=== PATIENT | female | born 1975 | race Caucasian/White ===

== ENCOUNTER 2017-02-17 05:31 | Day surgery (SDC) | payer BC, OTHER ==
--- NOTE | 2017-02-16 21:50 | PDHPUP ---
History & Physical Update H&P update statement: This history and physical update is based on an assessment of the patient which was completed after admission or registration (within 24 hours), but prior to the surgery/procedure. 1. Left Hip Pain s/p left-sided hip arthroscopy, Oct 2012 2. 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 ~~~Left-sided iliopsoas tendinopathy 4. ~~~Left-sided glut med and GT pain 5. ~~~Right-sided borderline anterior dysplasia and resultant labral tear HISTORY OF PRESENT ILLNESS: Bhumiis a 41 y.o.~~active female~who I have had the pleasure to consult on today.~I have enjoyed meeting her. ~She is ; she and her three children live in [place] and her is still located in [place]. 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 ~Cande has been very active lately moving from an apartment to a house; she used to enjoy doing the [employer] machine and other fitness activities. Cande's left~hip pain started several years ago, with~some previous complaints~ and with some~recalled trauma or injury. She states that while at work, she sustained a hip injury after jumping from a high chair. ~Her torso pivoted but her foot remained stationary, resulting in acute pain in her left hip. She subsequently took pain medication and went to see an Orthopedic doctor ([facility], Dr Tim Escudero) ~who diagnosed her with a labrum tear and GILLES. She subsequently underwent arthroscopic surgery on October 2012. ~~Post-operatively , she was non-weight bearing, though was not able to be 100% compliant due to her active lifestyle with her family. Soon thereafter she was diagnosed with bursitis of the hip and her anterior hip pain also became progressively worse. The bursitis was treated with serial injections (three), beginning in January 2013 , which offered some relief but not to a sufficient degree. ~At this point, her hip pain is as bad as it was prior to her hip surgery. Presentation is of~anterior and posterior left~hip pain. ~The hip does~wake her~ at night and does~click and catch on her. Sitting can be uncomfortable for her. She states that lying on her back or on her left side is the worst position with regard to aggravating her symptoms. ~Bhumidoes not~report suffering from lower back pain episodes. ~ Bhumiunderstands that she~has a hip and pelvis problem which should be researched and wishes to get a better understanding of her~hip status, followed by an establishment of a treatment strategy, hoping she~would be able to get back to her~well being active life. History: Past medical history: High Blood Pressure, (treated with medication) Hypothyroid, (treated with medication) Temporomandibular osteoarthritis Relevant familial history: None which is relevant Past surgical history: Temporomandibular surgery (10 times). The first one was 1998 Umbilical hernia (2006) Tendon and ganglion on right hand surgery. ACL left, 2009 Left hip arthroscopy, October 2012 I have reviewed, verified and agree with the past medical, surgical, family and social history. Current Medications:~has a current medication list which includes the following prescription(s): alprazolam, calcium carbonate, and fluoxetine. ALLERGIES:~Princehas no known allergies. Objective: Physical Examination: Bhumiis 5 ~feet 2~inches tall and weighs 105 Lbs. Currently, she~walks with a normal~gait. She~has~no leg length discrepancy and present with no~signs of joint laxity. ~ Trendelenburg sign is negative and Properiception is reduced, left~side(s) Lower spine examination is negative~for sciatic or femoral nerve irritation with negative~SLR but positive for femoral stretch tests~on the left side with numbness, tingling.~ Range of motion of the spine is normal~for flexion, extension, and rotations, with no~associated pain. SIJs examination is produces pain on left side~with normal~CLAIRE in relation and local tenderness. Strength~and pulses are normal - bilaterally Numbness secondary to ACL left anterior medial leg and to the ankle Reduced sensation on fem cut lateral left thigh Ankles and knees exams are normal~and no~mal-alignment is evident~except for Lachmann's left knee (+) Hip ROM (degrees): ER At 90~hip FL IR At 90~hip FL IR Neutral hip ER Neutral hip AB AD FL EX R 45 20 50 42 50 20 105 20 L 50 15 40 48 55 15 110p 20 Specific hip and pelvis tests: Quadrant CLAIRE Roll Add. Longus R ++ ++ Negative Negative L +++ +++ Negative Negative Glut. Med ITB Pos. Imp R Negative Negative Negative L +++ Negative ++ Squeeze test measured normal Bony Symphysis pubis is pain free to touch while concentric activity of the rectus abdominis, does not~produce pain at its insertion. Ilio Psos specific tests are positive for the left hip~and remarkable for left- sided painful snap~and nonpainful cycling on the right side and nonpainful snap on the right Greater trochanteric burse is painful on the left hip Piriformis tests: FAIR is negative, with no local signs of neuritis related to sciatic nerve. Quad circumference is asymmetric with low muscle atrophy (10%) on the left~side Hamstrings tests are negative for ~functional contraction bilaterally, negative for ~tendinopathy bilaterally, and TTP on left hamstrings origin (though not her daily pain) Per Cande: LEFT SIDE Glut med/min 30% Hip (anterior and posterior joint together) 70% Imaging: Radiology studies which I~have personally reviewed, analyzed and measured are below: XR: AP of the hip and pelvis: Performed in a good~technique Specific measurements show: NSA~ Cam LCE Lat. Pincer C.Over~sign Act. Depth A.I~% Head~Coverage % Sourcil ~Angle ATDmm R N - 25 + ~~12-1 P N 80 8 N L N - 21 - - P N 70 10 N [place]~Lines are preserved. Minimal Pathological signs are seen in the Symphysis Pubis. Minimal Pathological signs are seen at the Ischial~tuberosity. ~~~~~~~~~~~~~ Pos. wall sign Sup. Lat. OA Joint Space-WBZ Joint Space-Medial SALT R Negative Negative 5 mm 3.86 mm 10.8 mm L Negative Negative 5.24 mm 3.06 mm 10.4 mm Sclerosis ~~Dysplasia Cysts ISS R Negative + Negative Negative L Negative ++ Weight bearing cyst socket Negative X TABLE:~Right Hip, indentation divot secondary to anterior CAM Bilateral anteverted socket (bilateral 19 mm distance between anterior and posterior mendoza) Impression and plan: Cande~is a 41 y.o.~active female~suffering from symptomatic left hip pain s/p hip arthroscopy due to femoral head subluxation secondary to hip dysplasia ( anteverted socket and possible anteverted femur), left-sided glut med/GT pain, and left-sided iliopsoas tendinopathy causing significant disability to her~and altering~her~sport and life activities.~~She is also symptomatic on the right hip during physical examination maneuvers, and on imaging exhibits characteristics of borderline dysplasia. ~ In order to differentiate between the various possible sources of pain Cande opted to move forward with an intra articular injection today in clinic. After verbal consent was obtained and she voiced understanding of risks of infection, misplaced injection, fat or skin atrophy or injection into unintended structures , skin was prepped in routine sterile fashion. With sterile technique, after local skin and subcutaneous tissues were injected with 5cc 1% lidocaine, an injection of 10cc of 1% lidocaine was injected into Cande's hip joint without complication. The procedure was well tolerated. She noted improved symptoms with activity immediately after injection. The injection took 90% of the pain away, confirming the hip joint as the major source of her pain. I have explained the diagnosis and its significance to Bhumiand we have discussed the various possible treatment options~and their implications~with her. ~These include proceeding with conservative treatment while continuing to modify her~activities to avoid aggravating the hip further, resuming anti pain medications or intra articular injections (when needed) which can give temporary relief and a revision hip arthroscopy aiming to address the above pathology. We have also discussed the technical aspects of the surgery, mainly with regards to a possible need for labral reconstruction, if kletsel dehe wintun labral tissue is not amendable to repair due to quality and tear size. Prior to surgery we will obtain MRI to assess the extent of soft tissue and chondral injury, specifically evaluating the quality of her cartilage (as she is s/p hip arthroscopy). ~CT with 3D recon will be done in order to pre plan an accurate and optimal volume and location of bony resection. Bhumiis happy with this plan. I have also supplied her~with handouts, outlining the expected surgical treatment and rehab involved. I wish Bhumiall the best, ~~ Ketan Garrison MD
[~2017-02-17 05:31] MED LIST: ACETAMINOPHEN 500 MG TAB PO ONE; PREGABALIN 150 MG CAP PO ONE
[2017-02-17] MEDS ORDERED: PREGABALIN 150 MG CAP PO ONE (06:00)
[2017-02-17] MEDS ORDERED: ceFAZolin 2 GM/DEXTROSE 100 ML IV ONE (06:00)
[2017-02-17] MEDS ORDERED: ACETAMINOPHEN 500 MG TAB PO ONE (06:00)
[2017-02-17] MEDS ORDERED: LR 1,000 ML IV ONE (06:04)
[2017-02-17] MEDS ORDERED: LIDOCAINE 1% 2 ML INJ ID PRN (06:04)
[2017-02-17] MEDS ORDERED: ONDANSETRON 4 MG/2 ML VIAL IVP PRN (06:40)
[2017-02-17] MEDS ORDERED: ONDANSETRON DISINTEGRATING 4 MG TAB PO PRN (06:40)
[2017-02-17] MEDS ORDERED: EPINEPHrine 30 MG/30 ML MDV ONE (06:45)
[2017-02-17] MEDS ORDERED: BUPIVACAINE/EPI 0.25% 30 ML SDV ONE (06:45)
[2017-02-17] MEDS ORDERED: PROPOFOL 200 MG/20 ML VIAL ONE (07:06)
[2017-02-17] MEDS ORDERED: PROPOFOL/EMULSION 500 MG/50 ML BOTTLE IV ONE (07:06)
[2017-02-17] MEDS ORDERED: ROCURONIUM 50 MG/5 ML VIAL ONE ×2 (07:06→07:58)
[2017-02-17] MEDS ORDERED: fentaNYL 100 MCG/2 ML INJ ONE (07:06)
[2017-02-17] MEDS ORDERED: SUGAMMADEX SODIUM 200 MG/2 ML VIAL IVP ONE (07:07)
[2017-02-17] MEDS ORDERED: ONDANSETRON 4 MG/2 ML VIAL ONE (07:07)
[2017-02-17] MEDS ORDERED: METOCLOPRAMIDE 10 MG/2 ML VIAL ONE (07:07)
[2017-02-17] MEDS ORDERED: KETOROLAC 30 MG/1 ML SDV ONE (07:07)
[2017-02-17] MEDS ORDERED: DEXAMETHASONE 4 MG/ML VIAL ONE (07:07)
[2017-02-17] MEDS ORDERED: SCOPOLAMINE HYDROBROMIDE 1.5 MG PATCH TD ONE ×2 (07:12→07:19)
[2017-02-17] MEDS ORDERED: MIDAZOLAM 2 MG/2 ML VIAL ONE (07:12)
[2017-02-17] MEDS ORDERED: MIDAZOLAM 2 MG/2 ML VIAL IVP ONE (07:19)
[2017-02-17] MEDS ORDERED: PHENYLEPHRINE HCL 100 MCG/ML SYR ONE (07:39)
[2017-02-17] MEDS ORDERED: ATROPINE SULFATE 1 MG/ML VIAL ONE (07:55)
[2017-02-17] MEDS ORDERED: NALOXONE HCL 0.4 MG/ML INJ IVP PRN (08:23)
[2017-02-17] MEDS ORDERED: HYDROmorphONE/DILAUDID 1 MG/ML SYR IVP PRN (08:23)
[2017-02-17] MEDS ORDERED: ALBUTEROL 3 ML DEYVIAL IH PRN (08:23)
[2017-02-17] MEDS ORDERED: PROMETHAZINE HCL 25 MG/ML INJ IVP PRN (08:23)
--- NOTE | 2017-02-17 09:23 | POSTANESTH ---
Post Anesthetic Evaluation Cardiovascular Status: Normal, Stable Respiratory Status: Normal, Stable Level of Consciousness/Mental Status: Can Participate in Eval Pain Control: Adequate, Prn Tx Ordered Nausea/Vomiting Control: Adequate, Prn Tx Ordered Complications Possibly Related to Anesthesia: None Noted
--- NOTE | 2017-02-17 09:24 | PDANEPAE ---
ANE History of Present Illness Pt presents for surgery ANE Past Medical History - Cardiovascular History Hx Hypertension: No Hx Arrhythmias: No Hx Chest Pain: No Hx Coronary Artery / Peripheral Vascular Disease: No Hx CHF / Valvular Disease: No Hx Palpitations: No - Pulmonary History Hx COPD: No Hx Asthma/Reactive Airway Disease: No Hx Recent Upper Respiratory Infection: No Hx Oxygen in Use at Home: No - Neurologic History Hx Cerebrovascular Accident: No Hx Seizures: No Hx Dementia: No - Endocrine History Hx Diabetes: No - Renal History Hx Renal Disorders: No - Liver History Hx Hepatic Disorders: No - Neurological & Psychiatric Hx Hx Neurological and Psychiatric Disorders: Yes - Cancer History Hx Cancer: No - Congenital Disorder History Hx Congenital Disorders: No - GI History Hx Gastrointestinal Disorders: Yes - Chronic Pain History Chronic Pain: Yes (left hip) ANE Review of Systems - Exercise capacity METS (RN): 4 METS ANE Patient History - Allergies Allergies/Adverse Reactions: No Known Allergies Allergy (Verified 02/14/17 13:26) - Home Medications Home Medications: Herbals/Supplements -Info Only 02/14/17 [Last Taken 02/14/17] LYRICA 02/14/17 [Last Taken Unknown] LaMICtal 02/14/17 [Last Taken 02/16/17] Linzess 02/14/17 [Last Taken 02/16/17] Prozac 10 MG (*) 02/14/17 [Last Taken 02/16/17] Synthroid 02/14/17 [Last Taken 02/16/17] - NPO status NPO Since - Liquids (Date): 02/17/17 NPO Since - Liquids (Time): 03:00 NPO Since - Solids (Date): 02/16/17 NPO Since - Solids (Time): 20:00 - Smoking Hx Smoking Status: Never smoked - Family Anes Hx Family Hx Anesthesia Complications: none ANE Labs/Vital Signs - Vital Signs Blood Pressure: 94/67 Heart Rate: 62 Respiratory Rate: 16 O2 Sat (%): 93 Height: 154.94 cm Weight: 53.524 kg ANE Physical Exam - Airway Neck exam: decreased ROM Mallampati Score: Class 2 Mouth exam: small mouth opening - Pulmonary Pulmonary: no respiratory distress - Cardiovascular Cardiovascular: regular rate and rhythym - ASA Status ASA Status: II ANE Anesthesia Plan Anesthesia Plan: general endotracheal anesthesia (RBA discussed, patient agrees to proceed)
[2017-02-17] MEDS: fentaNYL 100 MCG/2 ML INJ IVP PRN ×2 (09:34→10:24)
[2017-02-17 09:42] VITALS: TEMP 97.5
[2017-02-17] MEDS: OXYCODONE/APAP 5/325 TAB PO PRN ×2 (10:31→12:44)
[2017-02-17 11:41] VITALS: PULSE 57; RESP 16
[2017-02-17 13:31] VITALS: O2SAT 97
[2017-02-17 13:56] VITALS: BP 91/59
== END 2017-02-17 13:20 | disposition home or self-care (01) ==
LOC: FSGY 05:31
PROVIDERS: ATTEND Orthopaedic Surgery Sports Medicine
PROC: 0SQB4ZZ Repair Left Hip Joint, Percutaneous Endoscopic Approach (ICD-10-PCS; principal; 2017-02-17 07:15)
PROC: 0SBB4ZZ Excision of Left Hip Joint, Percutaneous Endoscopic Approach (ICD-10-PCS; principal; 2017-02-17 07:15)
DX: M24.852 Other specific joint derangements of left hip, not elsewhere classified (principal); Q65.89 Other specified congenital deformities of hip; M25.552 Pain in left hip; M76.12 Psoas tendinitis, left hip; M67.852 Other specified disorders of synovium, left hip
CPT/HCPCS: 29916; 76001; C1769; C1713; J0461; J0690; J1100; J1885; J2250; J2370; J2405; J2704; J2765; J3010

== ENCOUNTER 2017-02-24 05:43 | Inpatient (IN) | payer BC, OTHER ==
--- NOTE | 2017-02-17 07:01 | PDANEPAE ---
ANE History of Present Illness Patient presents for L hip scope ANE Past Medical History - Cardiovascular History Hx Hypertension: No Hx Arrhythmias: No Hx Chest Pain: No Hx Coronary Artery / Peripheral Vascular Disease: No Hx CHF / Valvular Disease: No Hx Palpitations: No - Pulmonary History Hx COPD: No Hx Asthma/Reactive Airway Disease: No Hx Recent Upper Respiratory Infection: No Hx Oxygen in Use at Home: No - Neurologic History Hx Cerebrovascular Accident: No Hx Seizures: No Hx Dementia: No - Endocrine History Hx Diabetes: No - Renal History Hx Renal Disorders: No - Liver History Hx Hepatic Disorders: No - Neurological & Psychiatric Hx Hx Neurological and Psychiatric Disorders: Yes - Cancer History Hx Cancer: No - Congenital Disorder History Hx Congenital Disorders: No - GI History Hx Gastrointestinal Disorders: Yes - Chronic Pain History Chronic Pain: Yes (left hip) ANE Review of Systems - Exercise capacity Exercise capacity: >=4 METS (stomach surgery, jaw surgery) METS (RN): 4 METS ANE Patient History - Allergies Allergies/Adverse Reactions: No Known Allergies Allergy (Verified 02/14/17 13:26) - Home Medications Home Medications: Herbals/Supplements -Info Only 02/14/17 [Last Taken 02/14/17] LYRICA 02/14/17 [Last Taken Unknown] LaMICtal 02/14/17 [Last Taken 02/16/17] Linzess 02/14/17 [Last Taken 02/16/17] Prozac 10 MG (*) 02/14/17 [Last Taken 02/16/17] Synthroid 02/14/17 [Last Taken 02/16/17] - Smoking Hx Smoking Status: Never smoked - Family Anes Hx Family Hx Anesthesia Complications: none ANE Labs/Vital Signs - Vital Signs Height: 154.94 cm Weight: 53.524 kg ANE Physical Exam - Airway Mallampati Score: Class 2 Mouth exam: normal dental/mouth exam - Pulmonary Pulmonary: no respiratory distress - Cardiovascular Cardiovascular: regular rate and rhythym - ASA Status ASA Status: II ANE Anesthesia Plan Anesthesia Plan: general endotracheal anesthesia (rba discussed, patient agrees to proceed)
--- NOTE | 2017-02-20 08:23 | PDGENHP ---
History and Physical - Chief Complaint Left Hip Pain - History of Present Illness 1. Left Hip Pain s/p left-sided hip arthroscopy, Oct 2012 2. 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 ~~~Left-sided iliopsoas tendinopathy 4. ~~~Left-sided glut med and GT pain 5. ~~~Right-sided borderline anterior dysplasia and resultant labral tear HISTORY OF PRESENT ILLNESS: Bhumiis a 41 y.o.~~active female~who I have had the pleasure to consult on today.~I have enjoyed meeting her. ~She is ; she and her three children live in [place] and her is still located in [place]. 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 ~Cande has been very active lately moving from an apartment to a house; she used to enjoy doing the [employer] machine and other fitness activities. Sarahs left~hip pain started several years ago, with~some previous complaints~ and with some~recalled trauma or injury. She states that while at work, she sustained a hip injury after jumping from a high chair. ~Her torso pivoted but her foot remained stationary, resulting in acute pain in her left hip. She subsequently took pain medication and went to see an Orthopedic doctor ([facility], Dr Tim Escudero) ~who diagnosed her with a labrum tear and GILLES. She subsequently underwent arthroscopic surgery on October 2012. ~~Post-operatively , she was non-weight bearing, though was not able to be 100% compliant due to her active lifestyle with her family. Soon thereafter she was diagnosed with bursitis of the hip and her anterior hip pain also became progressively worse. The bursitis was treated with serial injections (three), beginning in January 2013 , which offered some relief but not to a sufficient degree. ~At this point, her hip pain is as bad as it was prior to her hip surgery. Presentation is of~anterior and posterior left~hip pain. ~The hip does~wake her~ at night and does~click and catch on her. Sitting can be uncomfortable for her. She states that lying on her back or on her left side is the worst position with regard to aggravating her symptoms. ~Bhumidoes not~report suffering from lower back pain episodes. ~ Bhumiunderstands that she~has a hip and pelvis problem which should be researched and wishes to get a better understanding of her~hip status, followed by an establishment of a treatment strategy, hoping she~would be able to get back to her~well being active life. History: Past medical history: High Blood Pressure, (treated with medication) Hypothyroid, (treated with medication) Temporomandibular osteoarthritis Relevant familial history: None which is relevant Past surgical history: Temporomandibular surgery (10 times). The first one was 1998 Umbilical hernia (2006) Tendon and ganglion on right hand surgery. ACL left, 2009 Left hip arthroscopy, October 2012 I have reviewed, verified and agree with the past medical, surgical, family and social history. Current Medications:~has a current medication list which includes the following prescription(s): alprazolam, calcium carbonate, and fluoxetine. ALLERGIES:~~has no known allergies. Objective: Physical Examination: Bhumiis 5 ~feet 2~inches tall and weighs 105 Lbs. Currently, she~walks with a normal~gait. She~has~no leg length discrepancy and present with no~signs of joint laxity. ~ Trendelenburg sign is negative and Properiception is reduced, left~side(s) Lower spine examination is negative~for sciatic or femoral nerve irritation with negative~SLR but positive for femoral stretch tests~on the left side with numbness, tingling.~ Range of motion of the spine is normal~for flexion, extension, and rotations, with no~associated pain. SIJs examination is produces pain on left side~with normal~CLAIRE in relation and local tenderness. Strength~and pulses are normal - bilaterally Numbness secondary to ACL left anterior medial leg and to the ankle Reduced sensation on fem cut lateral left thigh Ankles and knees exams are normal~and no~mal-alignment is evident~except for Lachmann's left knee (+) Hip ROM (degrees): ER At 90~hip FL IR At 90~hip FL IR Neutral hip ER Neutral hip AB AD FL EX R 45 20 50 42 50 20 105 20 L 50 15 40 48 55 15 110p 20 Specific hip and pelvis tests: Quadrant CLAIRE Roll Add. Longus R ++ ++ Negative Negative L +++ +++ Negative Negative Glut. Med ITB Pos. Imp R Negative Negative Negative L +++ Negative ++ Squeeze test measured normal Bony Symphysis pubis is pain free to touch while concentric activity of the rectus abdominis, does not~produce pain at its insertion. Ilio Psos specific tests are positive for the left hip~and remarkable for left- sided painful snap~and nonpainful cycling on the right side and nonpainful snap on the right Greater trochanteric burse is painful on the left hip Piriformis tests: FAIR is negative, with no local signs of neuritis related to sciatic nerve. Quad circumference is asymmetric with low muscle atrophy (10%) on the left~side Hamstrings tests are negative for ~functional contraction bilaterally, negative for ~tendinopathy bilaterally, and TTP on left hamstrings origin (though not her daily pain) Per Cande: LEFT SIDE Glut med/min 30% Hip (anterior and posterior joint together) 70% Imaging: Radiology studies which I~have personally reviewed, analyzed and measured are below: XR: AP of the hip and pelvis: Performed in a good~technique Specific measurements show: NSA~ Cam LCE Lat. Pincer C.Over~sign Act. Depth A.I~% Head~Coverage % Sourcil ~Angle ATDmm R N - 25 + ~~12-1 P N 80 8 N L N - 21 - - P N 70 10 N [place]~Lines are preserved. Minimal Pathological signs are seen in the Symphysis Pubis. Minimal Pathological signs are seen at the Ischial~tuberosity. ~~~~~~~~~~~~~ Pos. wall sign Sup. Lat. OA Joint Space-WBZ Joint Space-Medial SALT R Negative Negative 5 mm 3.86 mm 10.8 mm L Negative Negative 5.24 mm 3.06 mm 10.4 mm Sclerosis ~~Dysplasia Cysts ISS R Negative + Negative Negative L Negative ++ Weight bearing cyst socket Negative X TABLE:~Right Hip, indentation divot secondary to anterior CAM Bilateral anteverted socket (bilateral 19 mm distance between anterior and posterior mendoza) Impression and plan: Cande~is a 41 y.o.~active female~suffering from symptomatic left hip pain s/p hip arthroscopy due to femoral head subluxation secondary to hip dysplasia ( anteverted socket and possible anteverted femur), left-sided glut med/GT pain, and left-sided iliopsoas tendinopathy causing significant disability to her~and altering~her~sport and life activities.~~She is also symptomatic on the right hip during physical examination maneuvers, and on imaging exhibits characteristics of borderline dysplasia. ~ In order to differentiate between the various possible sources of pain Cande opted to move forward with an intra articular injection today in clinic. After verbal consent was obtained and she voiced understanding of risks of infection, misplaced injection, fat or skin atrophy or injection into unintended structures , skin was prepped in routine sterile fashion. With sterile technique, after local skin and subcutaneous tissues were injected with 5cc 1% lidocaine, an injection of 10cc of 1% lidocaine was injected into Cande's hip joint without complication. The procedure was well tolerated. She noted improved symptoms with activity immediately after injection. The injection took 90% of the pain away, confirming the hip joint as the major source of her pain. I have explained the diagnosis and its significance to Bhumiand we have discussed the various possible treatment options~and their implications~with her. ~These include proceeding with conservative treatment while continuing to modify her~activities to avoid aggravating the hip further, resuming anti pain medications or intra articular injections (when needed) which can give temporary relief and a revision hip arthroscopy aiming to address the above pathology. We have also discussed the technical aspects of the surgery, mainly with regards to a possible need for labral reconstruction, if standing rock labral tissue is not amendable to repair due to quality and tear size. Prior to surgery we will obtain MRI to assess the extent of soft tissue and chondral injury, specifically evaluating the quality of her cartilage (as she is s/p hip arthroscopy). ~CT with 3D recon will be done in order to pre plan an accurate and optimal volume and location of bony resection. Bhumiis happy with this plan. I have also supplied her~with handouts, outlining the expected surgical treatment and rehab involved. I wish Bhumiall the best, ~~ Ketan Garrison MD History Information - Allergies/Home Medication List Allergies/Adverse Reactions: No Known Allergies Allergy (Verified 02/14/17 13:26) Home Medications: Herbals/Supplements -Info Only 02/14/17 [Last Taken 02/14/17] LYRICA 02/14/17 [Last Taken Unknown] LaMICtal 02/14/17 [Last Taken 02/16/17] Linzess 02/14/17 [Last Taken 02/16/17] Prozac 10 MG (*) 02/14/17 [Last Taken 02/16/17] Synthroid 02/14/17 [Last Taken 02/16/17] I have personally reviewed and updated: medical history - Social History Smoking Status: Never smoked
[~2017-02-24 05:43] MED LIST changes: +HYDROCODONE/APAP 5/325 TAB ONE; +MIDAZOLAM 2 MG/2 ML VIAL IVP ONE; +OXYCODONE/APAP 5/325 TAB ONE; +SCOPOLAMINE HYDROBROMIDE 1.5 MG PATCH TD ONE; +TRANEXAMIC ACID 1,000 MG in NS 100 ML IV ONE; +ceFAZolin 2 GM/DEXTROSE 100 ML IV ONE; +fentaNYL 100 MCG/2 ML INJ ONE
[2017-02-24] MEDS ORDERED: LIDOCAINE 1% 2 ML INJ ID PRN (06:09)
[2017-02-24] MEDS ORDERED: LR 1,000 ML IV ONE (06:09)
--- NOTE | 2017-02-24 06:51 | PDANEPAE ---
ANE History of Present Illness Presents for Left MADDISON ANE Past Medical History - Cardiovascular History Hx Hypertension: No Hx Arrhythmias: No Hx Chest Pain: No Hx Coronary Artery / Peripheral Vascular Disease: No Hx CHF / Valvular Disease: No Hx Palpitations: No - Pulmonary History Hx COPD: No Hx Asthma/Reactive Airway Disease: No Hx Recent Upper Respiratory Infection: No Hx Oxygen in Use at Home: No - Neurologic History Hx Cerebrovascular Accident: No Hx Seizures: No Hx Dementia: No - Endocrine History Hx Diabetes: No - Renal History Hx Renal Disorders: No - Liver History Hx Hepatic Disorders: No - Neurological & Psychiatric Hx Hx Neurological and Psychiatric Disorders: Yes - Cancer History Hx Cancer: No - Congenital Disorder History Hx Congenital Disorders: No - GI History Hx Gastrointestinal Disorders: Yes - Chronic Pain History Chronic Pain: Yes (left hip) ANE Review of Systems - Exercise capacity METS (RN): 4 METS ANE Patient History - Allergies Allergies/Adverse Reactions: No Known Allergies Allergy (Verified 02/14/17 13:26) - Home Medications Home Medications: Herbals/Supplements -Info Only 02/14/17 [Last Taken 02/14/17] LYRICA 02/14/17 [Last Taken Unknown] LaMICtal 02/14/17 [Last Taken 02/16/17] Linzess 02/14/17 [Last Taken 02/16/17] Prozac 10 MG (*) 02/14/17 [Last Taken 02/16/17] Synthroid 02/14/17 [Last Taken 02/16/17] - NPO status NPO Since - Liquids (Date): 02/23/17 NPO Since - Liquids (Time): 20:30 NPO Since - Solids (Date): 02/23/17 NPO Since - Solids (Time): 20:30 - Smoking Hx Smoking Status: Never smoked - Family Anes Hx Family Hx Anesthesia Complications: none ANE Labs/Vital Signs - Vital Signs Blood Pressure: 106/61 Heart Rate: 62 Respiratory Rate: 15 O2 Sat (%): 97 Height: 154.94 cm Weight: 53.524 kg ANE Physical Exam - Airway Neck exam: FROM Mallampati Score: Class 2 Mouth exam: normal dental/mouth exam, small mouth opening - Pulmonary Pulmonary: no respiratory distress - Cardiovascular Cardiovascular: regular rate and rhythym - ASA Status ASA Status: II ANE Anesthesia Plan Anesthesia Plan: general endotracheal anesthesia, epidural
[2017-02-24] MEDS ORDERED: fentaNYL 100 MCG/2 ML INJ ONE ×3 (06:53→11:22)
[2017-02-24] MEDS ORDERED: MIDAZOLAM 2 MG/2 ML VIAL ONE (06:54)
[2017-02-24] MEDS ORDERED: ceFAZolin 2 GM/DEXTROSE 100 ML IV ONE (07:00)
[2017-02-24] MEDS ORDERED: ACETAMINOPHEN 500 MG TAB PO ONE (07:00)
[2017-02-24] MEDS ORDERED: SCOPOLAMINE HYDROBROMIDE 1.5 MG PATCH TD ONE (07:00)
[2017-02-24] MEDS ORDERED: PREGABALIN 150 MG CAP PO ONE (07:00)
[2017-02-24] MEDS ORDERED: TRANEXAMIC ACID 1,000 MG in NS 100 ML IV ONE (07:00)
[2017-02-24] MEDS ORDERED: CITRATE DEXTROSE SOLN 500 ML BAG ONE ×2 (07:15→11:12)
[2017-02-24] MEDS ORDERED: PROPOFOL 200 MG/20 ML VIAL ONE ×2 (07:18)
[2017-02-24 08:22] LABS: % IMMATURE GRANULYOCYTES 0.1 % (0.0-1.1); ABSOLUTE IMMATURE GRANULOCYTES 0.01 10^3/uL (0.00-0.10); ADD DIFF? NO; ADD MORPH? NO; ADD SCAN? NO; ATYPICAL LYMPHOCYTE FLAG 10 (0-99); FRAGMENT RBC FLAG 10 (0-99); HEMATOCRIT 35.9 % (38.0-47.0); HEMOGLOBIN 12.3 g/dL (12.6-16.3); LEFT SHIFT FLG 0 (0-99); LIPEMIA HEMOLYSIS FLAG 90 (0-99); MEAN CELL HEMOGLOBIN 31.1 pg (27.9-34.1); MEAN CELL HEMOGLOBIN CONCENTR. 34.3 g/dL (32.4-36.7); MEAN CELL VOLUME 90.7 fL (81.5-99.8); MEAN PLATELET VOLUME 12.1 fL (8.7-11.7); PLATELET CLUMPS FLAG 10 (0-99); PLATELET COUNT 150 10^3/uL (150-400); RED BLOOD CELL COUNT 3.96 10^6/uL (4.18-5.33); RED CELL DISTRIBUTION WIDTH 12.8 % (11.5-15.2)
[2017-02-24] MEDS ORDERED: NALOXONE HCL 0.4 MG/ML INJ IVP PRN ×2 (11:05→11:17)
[2017-02-24] MEDS ORDERED: NARCOTIC DRIP BAG-TOTAL ALL TYPES EP PRN (11:05)
[2017-02-24] MEDS ORDERED: fentaNYL 100 MCG/2 ML INJ IVP PRN (11:17)
[2017-02-24] MEDS ORDERED: ONDANSETRON 4 MG/2 ML VIAL IVP PRN ×2 (11:17→12:17)
[2017-02-24] MEDS ORDERED: PROMETHAZINE HCL 25 MG/ML INJ IVP PRN (11:17)
[2017-02-24] MEDS ORDERED: ALBUTEROL 3 ML DEYVIAL IH PRN (11:17)
[2017-02-24] MEDS ORDERED: BUPIVACAINE 0.25% 30 ML SDV ONE (11:42)
[2017-02-24] MEDS ORDERED: MAGNESIUM HYDROXIDE 30 ML UDCUP PO PRN (12:17)
[2017-02-24] MEDS ORDERED: ONDANSETRON DISINTEGRATING 4 MG TAB PO PRN (12:17)
[2017-02-24] MEDS ORDERED: LACTULOSE 20 GM/30 ML UDCUP PO PRN (12:17)
[2017-02-24] MEDS ORDERED: BISACODYL 10 MG SUPP PR PRN (12:17)
[2017-02-24] MEDS: REGARDING ANTICOAG MISC SCH (18:11)
[2017-02-24] MEDS: DC NARCS MISC SCH (18:11)
[2017-02-24] MEDS: ALPRAZolam 0.5 MG TAB PO PRN (18:17)
--- NOTE | 2017-02-24 19:52 | SUROPNOTE ---
VIMAL Operative Report - Surgery Surgery was performed in [facility] 02/24/17 Diagnosis: Left 1. Hip Acetabular Dysplasia Operation: Left~Montse Acetabular Osteotomy (MADDISON) Surgeon: Ketan Garrison MD Fastener Technologist:~~Adolfo GODOY Anesthetic: General + epidural Procedure: General anesthetic. Antibiotics given. Cell saver in use. Fluoroscopy. Phase 1: Position lateral, diagonal skin incision between ischial tuberosity and greater trochanter as for posterior hip approach. Blunt split of glut max fibers. Identification of fat pad overlying sciatic nerve. Exposure of sciatic nerve under fat pad, gently retracting it away-medially to ischial tuberosity. Exposure of subcotoloid fossa proximal to short rotators. Using osteotomes and under fluoroscopy, osteotomy of subcotoloid fossa to sciatic notch proximal to ischial spine. Closure of lateral cut. Patient is turned supine. Phase 2: Skin incision just distal to ASIS. Using diathermy the iliac spine was exposed and inguinal ligament + Sartorious were retracted medially, taking the LFCN with them, protecting it. Inner ilium was dissected from iliacus muscle bluntly , with a cob and swab. Dissection continued towards lateral superior ramus pubis. Using fluoroscopy an osteotomy of lateral superior ramus, just medial to tear drop, was performed with curved fish mouth osteotome. Phase 3: Osteotomy lines of the ilium were marked with diathermy as pre planned according to XR/CT and expected correction of acatabulum. 2 Shanz screws were drilled into central acetabular fragment, corresponding with planned correction angles, in order to mobilize central acetabular fragment after osteotomy is complete. ~Iliac osteotomy was performed with reciprocating saw and the main acetabular fragment was moved to realign weight bearing position. After confirmation of correction using fluoroscopy in AP and false profile planes, the fragment was fixed with 3 - 4mm~~full threaded~screws~and 1 - 5.5mm ~full threaded~screw. Inguinal ligament and Sartorious were attached back to ASIS through drill holes. Incision was closed according to soft tissue layers. Skin was closed with subdermal Monocryl. Final fluoro shots were obtained to confirm position/correction. After surgery Cande~moved both lower limbs and had no NV motor compromise. Evaluation under anesthesia: IR at 90 degrees hip flexion prior to MADDISON was 30~degrees and after MADDISON was 15-20 ~degrees. Bleedin~cc into cell-saver, 250~of blood products were returned to patient. Post op instructions: 1. Non~weight bearing crutches for 2~weeks, Then 50% for 4 weeks 2. Epidural analgesia for 24-48 hours 3. Continuous SCD 4. Aspirin 81 mg X1 day once Epidural is discontinued 5. Avoid hip flexion past 90 and hip External rotation. 6. PT according to my recommendations at follow up visit Kind regards, Dr. Ketan Garrison .
--- NOTE | 2017-02-24 20:13 | POSTANESTH ---
Post Anesthetic Evaluation Cardiovascular Status: Normal, Stable Respiratory Status: Normal, Stable Level of Consciousness/Mental Status: Can Participate in Eval Pain Control: Adequate, Prn Tx Ordered Nausea/Vomiting Control: Adequate, Prn Tx Ordered Complications Possibly Related to Anesthesia: None Noted Notes: complains of some anxiety but doing well overall. Good pain control with epidural.
[2017-02-24] MEDS: fentaNYL 2MCG/ML/BUP 0.1% RTU 100 ML EP SCH (21:07)
[2017-02-24] MEDS: SENNOSIDES/DOCUSATE SODIUM TAB PO SCH (21:15)
[2017-02-24] MEDS: DIAZEPAM 2 MG TAB PO PRN (21:15)
[2017-02-25] MEDS: NS 250 ML IV PRN ×2 (00:22→06:18)
[2017-02-25] MEDS: HYDROmorphONE/DILAUDID 1 MG/ML SYR IVP PRN ×4 (00:33→22:41)
[2017-02-25] MEDS: ALPRAZolam 0.5 MG TAB PO PRN ×2 (00:51→21:27)
[2017-02-25] MEDS: fentaNYL 2MCG/ML/BUP 0.1% RTU 100 ML EP SCH ×2 (04:51→19:26)
[2017-02-25 05:04] LABS: HEMATOCRIT 30.6 % (38.0-47.0); HEMOGLOBIN 10.2 g/dL (12.6-16.3); MEAN CELL HEMOGLOBIN 30.9 pg (27.9-34.1); MEAN CELL HEMOGLOBIN CONCENTR. 33.3 g/dL (32.4-36.7); MEAN CELL VOLUME 92.7 fL (81.5-99.8); RED BLOOD CELL COUNT 3.3 10^6/uL (4.18-5.33); RED CELL DISTRIBUTION WIDTH 12.8 % (11.5-15.2)
[2017-02-25 05:34] LABS: ANION GAP 4 mEq/L (8-16); CALCIUM 8.9 mg/dL (8.5-10.4); CARBON DIOXIDE 26 mEq/l (22-31); CHLORIDE 107 mEq/L (97-110); CREATININE 0.9 mg/dL (0.6-1.0); GLOMERULAR FILTRATION RATE > 60; GLUCOSE 93 mg/dL (70-100); POTASSIUM 4.6 mEq/L (3.5-5.2); SODIUM 137 mEq/L (134-144)
[2017-02-25] MEDS: SENNOSIDES/DOCUSATE SODIUM TAB PO SCH ×2 (08:12→21:26)
[2017-02-25] MEDS: DC NARCS MISC SCH (09:47)
[2017-02-25] MEDS: REGARDING ANTICOAG MISC SCH (09:47)
[2017-02-25] MEDS: OXYCODONE/APAP 5/325 TAB PO PRN ×2 (12:50→18:20)
--- NOTE | 2017-02-25 12:52 | SOAPPROG ---
SOAP Progress Note Assessment/Plan: Assessment:POD-1 L MADDISON T12-L1 Epidural Plan: 1. Trial of transition to PO pain meds this afternoon 02/25/17 12:49 Subjective: good pain control. Complains of some anxiety related to the epidural numbness Objective: Vital Signs Temp Pulse Resp BP Pulse Ox 36.3 C 81 12 74/49 L 95 02/25/17 11:52 02/25/17 11:52 02/25/17 11:52 02/25/17 11:52 02/25/17 11:52 Laboratory Results 02/25/17 04:35 02/25/17 04:35 02/24/17 02/25/17 02/26/17 05:59 05:59 05:59 Intake Total 3310 250 Output Total 3450 700 Balance -140 -450 Physical Exam - Physical Exam General Appearance: no apparent distress Back: Normal inspection (epidural site clear with dressing intact ) Skin: normal color Neuro/Psych: oriented x 3
--- NOTE | 2017-02-25 13:01 | POSTANESTH ---
Post Anesthetic Evaluation Cardiovascular Status: Normal, Stable Respiratory Status: Normal, Stable Level of Consciousness/Mental Status: Can Participate in Eval Pain Control: Adequate, Prn Tx Ordered Nausea/Vomiting Control: Adequate, Prn Tx Ordered Notes: Doing well POD 1 L MADDISON Epidural working well, site clear Some anxiety about epidural numbness Trial of transition to PO meds this afternoon
[2017-02-25] MEDS: DIAZEPAM 2 MG TAB PO PRN ×2 (14:32→21:25)
[2017-02-25] MEDS ORDERED: Naproxen [Naproxen] 500 MG PO PRN (21:10)
--- NOTE | 2017-02-25 21:10 | SOAPPROG ---
SOAP Progress Note Assessment/Plan: Assessment: 1 day post op Left Periacetabular Osteotomy Plan: Wean down and off epidural transition to oral analgesics Pelvis Xray in 2 days 02/25/17 21:07 Subjective: Cande is doing fairly well this evening. She reports having difficulty with increased pain with the decrease in the epidural, currently she is well pain managed. She denies any cp, sob, or nausea. Objective: Vital Signs Temp Pulse Resp BP Pulse Ox 36.8 C 83 15 90/51 L 94 02/25/17 19:55 02/25/17 19:55 02/25/17 19:55 02/25/17 19:55 02/25/17 19:55 Laboratory Results 02/25/17 04:35 02/25/17 04:35 02/24/17 02/25/17 02/26/17 05:59 05:59 05:59 Intake Total 3310 750 Output Total 3450 1700 Balance -140 -950 Well appearing in NAD Left Hip: dressings clean dry intact surrounding ecchymosis edema NVI distally Full ROM of foot and ankle ICD10 Worksheet Patient Problems: Problems Problem Status Onset Post-operative pain Acute - ICD10 Problem Qualifiers (1) Post-operative pain
[2017-02-25] MEDS ORDERED: ZOLPIDEM TARTRATE 5 MG TAB PO PRN (21:27)
[2017-02-25] MEDS ORDERED: ALPRAZolam 1 MG TAB PO PRN (21:30)
[2017-02-25] MEDS: BACLOFEN 10 MG TAB PO PRN (23:00)
[2017-02-25] MEDS: FLUoxetine 20 MG CAP PO SCH (23:17)
[2017-02-26] MEDS: OXYCODONE/APAP 5/325 TAB PO PRN ×2 (00:32→10:00)
[2017-02-26] MEDS: HYDROmorphONE/DILAUDID 1 MG/ML SYR IVP PRN ×3 (01:32→20:23)
[2017-02-26] MEDS: fentaNYL 2MCG/ML/BUP 0.1% RTU 100 ML EP SCH (04:18)
[2017-02-26] MEDS: REGARDING ANTICOAG MISC SCH (07:36)
[2017-02-26] MEDS: DC NARCS MISC SCH (07:36)
[2017-02-26] MEDS: lamoTRIgine 100 MG TAB PO SCH (07:58)
[2017-02-26] MEDS: SENNOSIDES/DOCUSATE SODIUM TAB PO SCH ×2 (07:58→20:24)
[2017-02-26] MEDS: DIAZEPAM 2 MG TAB PO PRN ×2 (07:58→20:23)
[2017-02-26] MEDS: FLUoxetine 20 MG CAP PO SCH (07:58)
[2017-02-26] MEDS: ASPIRIN EC 81 MG TAB PO SCH (13:23)
[2017-02-26] MEDS: oxyCODONE IR 5 MG TAB PO PRN ×3 (15:46→23:03)
[2017-02-26] MEDS: ALPRAZolam 1 MG TAB PO SCH ×2 (15:48→23:01)
[2017-02-26] MEDS: LINACLOTIDE 290 MCG PO SCH (17:27)
--- NOTE | 2017-02-26 17:40 | SOAPPROG ---
SOAP Progress Note Assessment/Plan: Assessment:POD 2 L MADDISON with T12-1 Epidural Plan: Epidural was discontinued and pain controlled with PO meds 02/26/17 17:38 Subjective: pain is tolerable. epidural has been off for 4 hours Objective: Vital Signs Temp Pulse Resp BP Pulse Ox 36.8 C 81 14 93/57 L 94 02/26/17 16:25 02/26/17 16:25 02/26/17 16:25 02/26/17 16:25 02/26/17 16:25 Laboratory Results 02/25/17 04:35 02/25/17 04:35 02/25/17 02/26/17 02/27/17 05:59 05:59 05:59 Intake Total 3310 750 1000 Output Total 3450 2600 1400 Balance -140 -1850 -400 Physical Exam - Physical Exam General Appearance: no apparent distress Back: Normal inspection (epidural site clear no redness ) Skin: normal color Neuro/Psych: oriented x 3 ICD10 Worksheet Patient Problems: Problems Problem Status Onset Post-operative pain Acute - ICD10 Problem Qualifiers (1) Post-operative pain
[2017-02-26] MEDS: PREGABALIN 150 MG CAP PO SCH (20:24)
[2017-02-26] MEDS: LEVOTHYROXINE 175 MCG TAB PO SCH (20:24)
[2017-02-26] MEDS: CLINDAMYCIN PHOSPHATE TP SCH (20:33)
[2017-02-26] MEDS ORDERED: ALPRAZolam 1 MG TAB PO SCH (21:00)
--- NOTE | 2017-02-26 21:29 | SOAPPROG ---
SOAP Progress Note Assessment/Plan: Assessment: Plan: 02/26/17 21:28 NV intact, moving along well just very anxious. We discussed this and need to come down and start looking forward [facility]. NV intact, wounds look good. Dr Garrison Objective: Vital Signs Temp Pulse Resp BP Pulse Ox 36.8 C 81 14 93/57 L 94 02/26/17 16:25 02/26/17 16:25 02/26/17 16:25 02/26/17 16:25 02/26/17 16:25 Laboratory Results 02/25/17 04:35 02/25/17 04:35 02/25/17 02/26/17 02/27/17 05:59 05:59 05:59 Intake Total 3310 750 1000 Output Total 3450 2600 1400 Balance -140 -1850 -400 ICD10 Worksheet Patient Problems: Problems Problem Status Onset Post-operative pain Acute
[2017-02-27] MEDS: oxyCODONE IR 5 MG TAB PO PRN ×5 (04:04→20:31)
[2017-02-27] MEDS: ALPRAZolam 1 MG TAB PO SCH ×3 (06:02→22:53)
[2017-02-27] MEDS: lamoTRIgine 100 MG TAB PO SCH (08:33)
[2017-02-27] MEDS: ASPIRIN EC 81 MG TAB PO SCH (08:33)
[2017-02-27] MEDS: SENNOSIDES/DOCUSATE SODIUM TAB PO SCH ×2 (08:33→20:31)
[2017-02-27] MEDS: FLUoxetine 20 MG CAP PO SCH (08:33)
[2017-02-27] MEDS: LINACLOTIDE 290 MCG PO SCH (08:34)
[2017-02-27] MEDS: POLYETHYLENE GLYCOL 3350 17 GM PKT PO PRN (08:40)
[2017-02-27] MEDS: BACLOFEN 10 MG TAB PO PRN (11:43)
[2017-02-27] MEDS: ACETAMINOPHEN 325 MG TAB PO PRN (11:43)
[2017-02-27] MEDS: DC NARCS MISC SCH (12:57)
[2017-02-27] MEDS: REGARDING ANTICOAG MISC SCH (12:57)
[2017-02-27] MEDS: PREGABALIN 150 MG CAP PO SCH (20:31)
[2017-02-27] MEDS: LEVOTHYROXINE 175 MCG TAB PO SCH (20:31)
[2017-02-27] MEDS: CLINDAMYCIN PHOSPHATE TP SCH (20:43)
--- NOTE | 2017-02-27 22:09 | SOAPPROG ---
MELISA Progress Note Assessment/Plan: Assessment: 3rd day post op Left Periacetabular Osteotomy Plan: Pelvis xray shows good screw and bony fixation oral Oxycodone home in 1-2 days 02/25/17 21:07 02/27/17 22:06 Subjective: Cande has experienced periods of anxiety and had been under medicated with Xanax due to her under reporting of her normal dosage; this was remedied yesterday. Epidural and woodall came out yesterday, her pain has been well managed with Oxycodone. She denies any cp, sob or nausea. Objective: Vital Signs Temp Pulse Resp BP Pulse Ox 36.4 C 83 16 110/66 91 L 02/27/17 19:12 02/27/17 19:12 02/27/17 19:12 02/27/17 19:12 02/27/17 19:12 Laboratory Results 02/25/17 04:35 02/25/17 04:35 02/26/17 02/27/17 02/28/17 05:59 05:59 05:59 Intake Total 750 2000 Output Total 2600 2900 Balance -1850 -900 Well appearing in NAD Left Hip: dressings clean dry intact scattered ecchymosis edema NVI distally Full ROM of foot and ankle - Pending Discharge Pending Discharge Within 24 Hours: Yes Pending Discharge Date: 02/28/17 Pending Discharge Time: 11:00 ICD10 Worksheet Patient Problems: Problems Problem Status Onset Post-operative pain Acute - ICD10 Problem Qualifiers (1) Post-operative pain
[2017-02-28] MEDS: oxyCODONE IR 5 MG TAB PO PRN ×5 (01:17→21:26)
[2017-02-28] MEDS: ALPRAZolam 1 MG TAB PO SCH ×3 (07:37→21:27)
[2017-02-28] MEDS: ASPIRIN EC 81 MG TAB PO SCH (09:12)
[2017-02-28] MEDS: FLUoxetine 20 MG CAP PO SCH (09:12)
[2017-02-28] MEDS: lamoTRIgine 100 MG TAB PO SCH (09:12)
[2017-02-28] MEDS: SENNOSIDES/DOCUSATE SODIUM TAB PO SCH ×2 (09:12→21:27)
[2017-02-28] MEDS: DC NARCS MISC SCH (09:14)
[2017-02-28] MEDS: REGARDING ANTICOAG MISC SCH (09:15)
[2017-02-28] MEDS: POLYETHYLENE GLYCOL 3350 17 GM PKT PO PRN (09:18)
[2017-02-28] MEDS: DIAZEPAM 2 MG TAB PO PRN ×2 (09:46→15:26)
[2017-02-28] MEDS: LINACLOTIDE 290 MCG PO SCH (11:20)
[2017-02-28] MEDS: HYDROmorphONE/DILAUDID 1 MG/ML SYR IVP PRN (12:41)
[2017-02-28] MEDS: PREGABALIN 150 MG CAP PO SCH (21:26)
[2017-02-28] MEDS: LEVOTHYROXINE 175 MCG TAB PO SCH (21:26)
[2017-02-28] MEDS: CLINDAMYCIN PHOSPHATE TP SCH (21:30)
[2017-02-28 22:22] VITALS: O2SAT 94
[2017-03-01] MEDS: oxyCODONE IR 5 MG TAB PO PRN ×4 (01:18→12:13)
[2017-03-01] MEDS: ALPRAZolam 1 MG TAB PO SCH (05:40)
[2017-03-01] MEDS: FLUoxetine 20 MG CAP PO SCH (08:27)
[2017-03-01] MEDS: lamoTRIgine 100 MG TAB PO SCH (08:27)
[2017-03-01] MEDS: SENNOSIDES/DOCUSATE SODIUM TAB PO SCH (08:27)
[2017-03-01] MEDS: ASPIRIN EC 81 MG TAB PO SCH (08:27)
[2017-03-01] MEDS: DIAZEPAM 2 MG TAB PO PRN (08:27)
[2017-03-01 08:45] VITALS: BP 105/71; PULSE 80; RESP 16; TEMP 99.2
[2017-03-01] MEDS: DC NARCS MISC SCH (10:03)
[2017-03-01] MEDS: REGARDING ANTICOAG MISC SCH (10:03)
[2017-03-01] MEDS: LINACLOTIDE 290 MCG PO SCH (10:03)
--- NOTE | 2017-03-01 10:17 | PDIAF ---
- Diagnosis Code Status: Full Code - Medication Management Discharge Medications: Medications to Continue on Transfer ALPRAZolam [Xanax 0.5 MG (*)] 1 mg PO DAILY PRN 02/24/17 [Last Taken Unknown] ALPRAZolam [Xanax 0.5 MG (*)] 1 mg PO HS 02/24/17 [Last Taken 02/23/17] Baclofen [Baclofen 10 mg (*)] 10 mg PO TID PRN 02/24/17 [Last Taken Unknown] Clindamycin Phosphate [Clindamycin Top Solution] 1 demetri TP HS 02/24/17 [Last Taken Unknown] Diazepam [Valium 2 MG (*)] 2 mg PO Q6H PRN 02/24/17 [Last Taken Unknown] Fluoxetine HCl [Fluoxetine HCl] 60 mg PO DAILY 02/24/17 [Last Taken 02/23/17] Levothyroxine [Synthroid 175 mcg (*)] 175 mcg PO HS 02/24/17 [Last Taken ] Linaclotide [Linzess] 1 cap PO DAILY 02/24/17 [Last Taken 02/23/17] Naproxen 500 mg PO BID PRN 02/24/17 [Last Taken Unknown] Ondansetron Odt [Zofran Odt 4 mg (*)] 4 mg PO Q4 PRN 02/24/17 [Last Taken Unknown] Pregabalin [Lyrica] 300 mg PO HS 02/24/17 [Last Taken 02/23/17] Zolpidem Tartrate [Ambien 10 mg] 10 mg PO HS PRN 02/24/17 [Last Taken Unknown] lamoTRIgine [Lamictal] 200 mg PO DAILY 02/24/17 [Last Taken 02/23/17] oxyCODONE/APAP 5/325 [Percocet 5/325 (*)] 1 - 2 tab PO Q4-6PRN PRN 02/24/17 [ Last Taken Unknown] Discharge Medications: Refer to the Discharge Home Medication list for PRN reason. - Orders Services needed: Home Care, Physical Therapy, Occupational Therapy Home Care Face to Face: I certify that this patient was under my care and that I had the required [id number] encounter meeting the encounter requirements on the discharge day. My findings support the fact that the patient is homebound as defined in CMS Chapter 7 Medicare Benefits Manual 30.1.1, The condition of the patient is such that there exists a normal inability to leave home and consequently, leaving home would require a considerable and taxing effort. Diet Recommendation: no restrictions on diet - Follow Up Care Current Providers and Referrals: SEFERINO CUEVAS [Other]
[2017-03-01] MEDS: ACETAMINOPHEN 325 MG TAB PO PRN (12:14)
== END 2017-03-01 12:30 | disposition home health service (06) | DRG 482 ==
LOC: F3N 05:43
PROVIDERS: ADMIT Orthopaedic Surgery Sports Medicine; ATTEND Orthopaedic Surgery Sports Medicine
DX: Q65.89 Other specified congenital deformities of hip (principal); R03.0 Elevated blood-pressure reading, without diagnosis of hypertension; E03.9 Hypothyroidism, unspecified
CPT/HCPCS: 97110-GP; 97116-GP; 97162-GP; 97166-GO; 97530-GO; 97530-GP; 97535-GO; C1713; J0690; J1170; J2250; J2704; J3010; J7060